=== PATIENT | female | born 1945 | race Caucasian/White ===

== ENCOUNTER 2017-04-08 07:36 | Day surgery (SDC) | payer MEDICARE, OTHER ==
[~2017-04-08 07:36] MED LIST: KETOROLAC TROMETHAMINE 0.45% 4 DROP/0.4 ML DROPERETTE OD PRN
[2017-04-08] MEDS: TROPICAMIDE 1% OPH SOLN 3 ML OD PRN ×3 (08:15→08:36)
[2017-04-08] MEDS: CYCLOPENTOLATE 0.2%/PHENYLEPHRINE 1% OPH SOLN 2 ML OD PRN ×3 (08:15→08:36)
[2017-04-08] MEDS: TETRACAINE HCL 0.5% OPH SOLN 0.6 ML DROPERETTE OD PRN ×3 (08:15→08:43)
[2017-04-08] MEDS: BESIFLOXACIN HCL 0.6% OPH SUSP 5 ML BOTTLE OD PRN ×3 (08:26→09:31)
[2017-04-08] MEDS ORDERED: MIDAZOLAM 2 MG/2 ML INJ ONE ×2 (08:36)
[2017-04-08] MEDS: LIDOCAINE 4% INJ/PF (40 MG/ML) 5 ML AMPUL OD PRN ×2 (08:57)
[2017-04-08] MEDS: BUPIVACAINE HCL 0.75% INJ/PF (7.5 MG/1 ML) 10 ML SDV OD PRN ×2 (08:57)
[2017-04-08] MEDS: EPINEPHRINE INJ/PF 1 MG/1 ML AMPULE ONE ×2 (09:15)
[2017-04-08] MEDS: CHONDR SU A NA/HYALUR INTRAOC KIT (SURGICARE) ONE ×2 (09:15)
[2017-04-08] MEDS: LIDOCAINE 1% INJ-PF (10 MG/ML) 30 ML SDV ONE ×2 (09:15)
--- NOTE | 2017-04-08 09:59 | [facility] DISCHARGE SUMMARY E ---
[facility] Discharge Summary NAME: JOEL GARCIA AGE: 71Y ADMITTED: 04/08/2017 DISCHARGED: 04/08/2017 PREOPERATIVE DIAGNOSIS: Cataract, right eye. POSTOPERATIVE DIAGNOSIS: Cataract, right eye. HOSPITAL COURSE: The patient is a 71-year-old lady who underwent uneventful cataract extraction with Toric intraocular lens implant, right eye. She will be discharged to home. She was instructed to resume preoperative medications, take Tylenol as needed for discomfort, to keep her eye shielded, to use Besivance, Durezol, and Ilevro at 3 p.m. and 8 p.m., and to followup in my office in 1 day. DICTATING PHYSICIAN: DALLAS MACIAS M.D. [id number] PHY#: [id number] ID: [id number] JOB#: [id number] ACCT: [id number] cc:DALLAS MACIAS M.D. >
--- NOTE | 2017-04-08 09:59 | [facility] OPERATIVE REPORT E ---
[facility] Operative Report NAME: JOEL GARCIA AGE: 71Y DATE OF SURGERY: 04/08/2017 ROOM: PREOPERATIVE DIAGNOSIS: Cataract, right eye. POSTOPERATIVE DIAGNOSIS: Cataract, right eye. PROCEDURE PERFORMED: Phacoemulsification with Toric intraocular lens, right eye. SURGEON: Nia Macias MD ANESTHESIA: Topical with MAC. INDICATIONS FOR SURGERY: Difficulty reading small print and road signs. Best corrected visual acuity 20/50. PROCEDURE: The patient was brought to the operating room and placed in a sitting position , the 0,180,and 270 degrees were marked on the cornea using a marking level . the pt was placed in a reclining position. Following tetracaine drops, topical anesthesia was administered. This consisted of instrument wipe pledgets soaked in a solution of 4% Xylocaine mixed with 0.75% Marcaine in a 1:2 ratio. A 2 x 1 cm pledget was placed in the superior fornix. A 1 x 1 cm pledget was placed in the inferior fornix. The eye was patched shut for 5 minutes. The patch was removed. The eye was sterilely prepped and draped in the usual manner. Lid speculum was placed in the eye. The pledgets were removed. 4-0 black silk sutures were placed around the superior and the inferior rectus muscles to be used as traction. A conjunctival peritomy was made at the 10 o'clock position. Hemostasis was obtained with bipolar cautery. A posterior limbal groove was created using a crescent knife and dissected anteriorly towards the cornea. A sharp point blade was used to create a paracentesis site at the 2 o'clock position. A 2.4 mm keratome was used to enter the anterior chamber through the groove. Viscoelastic was injected into the anterior chamber. An anterior capsulotomy was performed using Utrata forceps in a capsulorrhexis fashion. Hydrodissection and hydrodelineation were performed. Phacoemulsification was performed in ckynkx-sna-gkgelti technique. A total of 6.32 CDE phaco time was used. Following this, the I/A unit was used to remove residual cortex. Viscoelastic was injected into the capsular bag. the 14 degree axis was marked on the eye using a marking level. Intraocular lens model SN6AT4, 18.5 diopters, serial number [id number] was placed in the capsular bag and centered on the 14 degree axis. The I/A unit was used to remove residual viscoelastic. The wound was seen to be watertight under high and low pressure, and no sutures were placed. The intraocular lens was well centered. The pressure was adjusted in the eye to normal pressure. The 4-0 black silk sutures and lid speculum were removed. The eye was shielded after Besivance drops were placed. The patient tolerated the procedure well and was sent to the recovery room in good condition. DICTATING PHYSICIAN: NIA MACIAS M.D. [id number] PHY#: [id number] ID: [id number] JOB#: [id number] ACCT: [id number] cc:NIA MACIAS M.D. > MTDD
== END 2017-04-08 10:22 | disposition home or self-care (01) ==
LOC: SC 07:36
PROVIDERS: ATTEND Ophthalmology
PROC: 08RJ3JZ Replacement of Right Lens with Synthetic Substitute, Percutaneous Approach (ICD-10-PCS; principal; 2017-04-08 09:00)
DX: H25.813 Combined forms of age-related cataract, bilateral (principal); H40.1111 Primary open-angle glaucoma, right eye, mild stage; H40.022 Open angle with borderline findings, high risk, left eye; H53.002 Unspecified amblyopia, left eye; I10 Essential (primary) hypertension; Z79.82 Long term (current) use of aspirin; Z79.899 Other long term (current) drug therapy
CPT/HCPCS: 66984; J2250; J3490 ×4; A9270; J0171; 142

== ENCOUNTER 2017-04-29 06:42 | Day surgery (SDC) | payer MEDICARE, OTHER ==
[~2017-04-29 06:42] MED LIST changes: +BUPIVACAINE HCL 0.75% INJ/PF (7.5 MG/1 ML) 10 ML SDV OS PRN; -KETOROLAC TROMETHAMINE 0.45% 4 DROP/0.4 ML DROPERETTE OD PRN; +KETOROLAC TROMETHAMINE 0.45% 4 DROP/0.4 ML DROPERETTE OS PRN; +LIDOCAINE 4% INJ/PF (40 MG/ML) 5 ML AMPUL OS PRN
[2017-04-29] MEDS ORDERED: MIDAZOLAM 2 MG/2 ML INJ ONE (06:56)
[2017-04-29] MEDS ORDERED: FENTANYL CITRATE INJ/PF 100 MCG/2 ML AMPUL ONE (06:56)
[2017-04-29] MEDS: TROPICAMIDE 1% OPH SOLN 3 ML OS PRN ×3 (07:03→07:25)
[2017-04-29] MEDS: TETRACAINE HCL 0.5% OPH SOLN 0.6 ML DROPERETTE OS PRN ×2 (07:03→07:54)
[2017-04-29] MEDS: BESIFLOXACIN HCL 0.6% OPH SUSP 5 ML BOTTLE OS PRN ×3 (07:03→08:33)
[2017-04-29] MEDS: CYCLOPENTOLATE 0.2%/PHENYLEPHRINE 1% OPH SOLN 2 ML OS PRN ×3 (07:03→07:25)
[2017-04-29] MEDS ORDERED: EPINEPHRINE INJ/PF 1 MG/1 ML AMPULE ONE (07:14)
[2017-04-29] MEDS ORDERED: CHONDR SU A NA/HYALUR INTRAOC KIT (SURGICARE) ONE (07:14)
[2017-04-29] MEDS ORDERED: LIDOCAINE 1% INJ-PF (10 MG/ML) 30 ML SDV ONE (07:14)
--- NOTE | 2017-04-29 09:04 | [facility] DISCHARGE SUMMARY E ---
[facility] Discharge Summary NAME: JOEL GARCIA AGE: 71Y ADMITTED: 04/29/2017 DISCHARGED: 04/29/2017 HOSPITAL COURSE: The patient is a 71-year-old lady who underwent uneventful cataract extraction with Toric intraocular lens implant left eye on 04/29/2017. She will be discharged to home. She is instructed to resume preoperative medications, take Tylenol as needed for discomfort, to keep her eye shielded, to use Besivance, Durezol, and Ilevro at 3 p.m. and 8 p.m., and to follow up in my office in 1 day. DICTATING PHYSICIAN: DALLAS MACIAS M.D. [id number] PHY#: [id number] ID: [id number] JOB#: [id number] ACCT: [id number] cc:DALLAS MACIAS M.D. >
--- NOTE | 2017-04-29 09:04 | [facility] OPERATIVE REPORT E ---
[facility] Operative Report NAME: JOEL GARCIA AGE: 71Y DATE OF SURGERY: 04/29/2017 ROOM: PREOPERATIVE DIAGNOSIS: Cataract, left eye. POSTOPERATIVE DIAGNOSIS: Cataract, left eye. PROCEDURE PERFORMED: Phacoemulsification with Toric intraocular lens implant, left eye. SURGEON: DALLAS MACIAS M.D. ANESTHESIA: Topical with MAC. INDICATIONS FOR SURGERY: Difficulty reading the newspaper. Best corrected visual acuity 20/50. PROCEDURE: The patient was brought to the Operating Room and placed on the operative table. Prior to the surgery, the patient was placed in the seating position and the 0, 180, and 270 degree axis was marked on the eye. Following tetracaine drops, topical anesthesia was administered. This consisted of instrument wipe pledgets soaked in a solution of 4% Xylocaine mixed with 0.75% Marcaine in a 1:2 ratio. A 2 x 1 cm pledget was placed in the superior fornix. A 1 x 1 cm pledget was placed in the inferior fornix. The eye was patched shut for 5 minutes. The patch was removed. The eye was sterilely prepped and draped in the usual manner. Lid speculum was placed in the eye. The pledgets were removed. 4-0 black silk sutures were placed around the superior and the inferior rectus muscles to be used as traction. A conjunctival peritomy was made at the 10 o'clock position. Hemostasis was obtained with bipolar cautery. A posterior limbal groove was created using a crescent knife and dissected anteriorly towards the cornea. A sharp point blade was used to create a paracentesis site at the 2 o'clock position. A 2.4 mm keratome was used to enter the anterior chamber through the groove.Total of 0.5 mL of 1% non-preserved lidocaine was injected into the eye following the incision. Viscoelastic was injected into the anterior chamber. An anterior capsulotomy was performed using Utrata forceps in a capsulorrhexis fashion. Hydrodissection and hydrodelineation were performed. Phacoemulsification was performed in vrzqiu-krv-gjwzerm technique. A total of 1 minute, 2 seconds phaco time was used. Following this, the I/A unit was used to remove residual cortex. Viscoelastic was injected into the capsular bag. Prior to placing the lens implant, the 165 degree axis was marked on the eye and the lens was placed with this axis.Intraocular lens model SN6AT3, 18.5 diopters, serial number [id number] was placed in the capsular bag. The I/A unit was used to remove residual viscoelastic. a single interrupted 10-0 nylon suture was placed through the incision. The wound was seen to be watertight under high and low pressure The intraocular lens was well centered. The pressure wasadjusted in the eye to normal pressure. The 4-0 black silk sutures and lid speculum were removed. The eye was shielded after Besivance drops were placed. The patient tolerated the procedure well and was sent to the Recovery Room in good condition. T DICTATING PHYSICIAN: DALLAS MACIAS M.D. DICTATING PHYSICIAN: DALLAS MACIAS M.D. [id number] Y#: [id number] ID: [id number] JOB#: [id number] ACCT: [id number] cc:DALLAS MACIAS M.D. > MTDD
== END 2017-04-29 09:20 | disposition home or self-care (01) ==
LOC: SC 06:42
PROVIDERS: ATTEND Ophthalmology
PROC: 08RK3JZ Replacement of Left Lens with Synthetic Substitute, Percutaneous Approach (ICD-10-PCS; principal; 2017-04-29 08:00)
DX: H25.812 Combined forms of age-related cataract, left eye (principal); Z96.1 Presence of intraocular lens; I10 Essential (primary) hypertension; Z79.899 Other long term (current) drug therapy; Z79.82 Long term (current) use of aspirin
CPT/HCPCS: 66984; V2787; J2250; J3490 ×4; A9270; J0171; J3010; 142